=== PATIENT | male | born 1945 | race Caucasian/White ===

== ENCOUNTER 2020-03-31 12:41 | Emergency (ER) | payer OTHER ==
[2020-03-31 14:14] LABS: HEMOGLOBIN 11.9 gm/dl (14.0-17.5); RED BLOOD COUNT 3.95 M/UL (4.20-5.50); WHITE BLOOD COUNT 11.2 K/UL (4.5-11.0)
[2020-03-31 14:46] LABS: BUN/CREATININE RATIO 10 (0-10)
[2020-03-31] MEDS ORDERED: AUGMENTIN 875-1 EACH PO (16:33)
[2020-03-31] MEDS ORDERED: CLEOCIN HCL150 MG PO (16:33)
== END 2020-03-31 16:40 | disposition home or self-care (01) ==
LOC: ER1 12:41
PROVIDERS: Student in an Organized Health Care Education/Training Program
DX: J18.9 Pneumonia, unspecified organism (principal); L03.116 Cellulitis of left lower limb; I48.91 Unspecified atrial fibrillation; Z20.822 Contact with and (suspected) exposure to COVID-19; Z79.84 Long term (current) use of oral hypoglycemic drugs; Z79.899 Other long term (current) drug therapy; Z88.8 Allergy status to other drugs, medicaments and biological substances
CPT/HCPCS: 0240U; 36415; 70450; 73630; 80053; 81001; 82550; 82553; 83874; 84484; 85025; 85610; 85652; 85730; 86140; 93005; 99285